=== PATIENT | male | born 1955 | race Caucasian/White ===

== ENCOUNTER 2021-11-11 07:01 | Emergency (ER) | payer MEDICARE ==
[~2021-11-11] VITALS: Ht 180.3 cm; Wt 74.5 kg
[2021-11-11] MEDS ORDERED: aspirin 81mg tab.chew PO ONE (07:30)
[2021-11-11 07:38] LABS: BASOPHILS % (AUTO) 0.5 % (0-1); EOSINOPHILS # (AUTO) 0.1 X10'3 (0-0.9); EOSINOPHILS % (AUTO) 1.8 % (0-6); HEMATOCRIT 46.4 % (42.0-52.0); HEMOGLOBIN 15.4 g/dl (14.0-17.9); LYMPHOCYTES # (AUTO) 1.8 X10'3 (1.1-4.8); LYMPHOCYTES % (AUTO) 34.6 % (21-51); MEAN CORPUSCULAR HEMOGLOBIN 30.8 PG (27.0-31.0); MEAN CORPUSCULAR HGB CONC 33.2 g/dL (33.0-36.5); MEAN CORPUSCULAR VOLUME 92.8 FL (78-98); MEAN PLATELET VOLUME 7.8 FL (7.4-10.4); MONOCYTES # (AUTO) 0.6 X10'3 (0-0.9); MONOCYTES % (AUTO) 12.3 % (2-12); NEUTROPHILS # (AUTO) 2.6 X10'3 (1.8-7.7); NEUTROPHILS % (AUTO) 50.8 % (42-75); PLATELET COUNT 275 X10'3 (140-440); RED CELL DISTRIBUTION WIDTH 13.4 % (11.5-14.5); WHITE BLOOD COUNT 5.2 X10'3 (4.5-11.0)
[2021-11-11 07:47] LABS: ALANINE AMINOTRANSFERASE 28 U/L (12-78); ALBUMIN 3.8 G/DL (3.4-5.0); ALBUMIN/GLOBULIN RATIO 1.1 (1.1-1.5); ALKALINE PHOSPHATASE 70 IU/L (46-116); ANION GAP 6 (8-16); ASPARTATE AMINO TRANSFERASE 22 U/L (10-37); BILIRUBIN,TOTAL 0.7 MG/DL (0.1-1.0); BLOOD UREA NITROGEN 14 MG/DL (7-18); BUN/CREATININE RATIO 13.3 (5.4-32.0); CALCIUM 8.8 MG/DL (8.5-10.1); CHLORIDE 104 MMOL/L (99-107); CREATININE 1.05 MG/DL (0.60-1.10); GLUCOSE 112 MG/DL (70-104); POTASSIUM 4.3 MMOL/L (3.5-5.1); SODIUM 138 MMOL/L (135-145); TOTAL CARBON DIOXIDE 27.8 MMOL/L (24-32); TOTAL PROTEIN 7.4 G/DL (6.4-8.2); eGFR 71 ML/MIN
[2021-11-11 08:30] VITALS: BP 148/82
[2021-11-19] MEDS ORDERED: ALFU10TA10 PO (10:44)
[2021-11-19] MEDS ORDERED: LOSA100T57 PO (10:44)
[2021-11-19] MEDS ORDERED: DIAZ5TAB4 PO (10:44)
[2021-11-20] MEDS ORDERED: METO-395 PO (08:50)
[2021-11-20] MEDS ORDERED: TICA90TA PO (08:50)
[2021-11-20] MEDS ORDERED: ASPI-1071 PO (08:50)
[2021-11-20] MEDS ORDERED: ATOR20TA66 PO (08:50)
[2021-11-20] MEDS ORDERED: NITR0.4T51 SL (08:50)
[2021-11-20] MEDS ORDERED: LOSA50TA3 PO (10:28)
== END 2021-11-11 09:56 | disposition home or self-care (01) ==
LOC: ER 07:02
DX: R07.89 Other chest pain (principal); R42 Dizziness and giddiness; Z98.890 Other specified postprocedural states
CPT/HCPCS: 36415; 71045; 80053; 83880; 84484; 85025; 93005; 99285

== ENCOUNTER 2022-06-04 06:53 | Day surgery (SDC) | payer MEDICARE ==
[2022-06-03 09:49] LABS: BASOPHILS % (AUTO) 0.6 % (0-1); EOSINOPHILS # (AUTO) 0.1 X10'3 (0-0.9); EOSINOPHILS % (AUTO) 1.9 % (0-6); HEMOGLOBIN 15.1 g/dl (14.0-17.9); LYMPHOCYTES # (AUTO) 1.5 X10'3 (1.1-4.8); LYMPHOCYTES % (AUTO) 31.9 % (21-51); MEAN CORPUSCULAR HEMOGLOBIN 31.7 PG (27.0-31.0); MEAN CORPUSCULAR HGB CONC 32.9 g/dL (33.0-36.5); MEAN CORPUSCULAR VOLUME 96.5 FL (78-98); MEAN PLATELET VOLUME 8.5 FL (7.4-10.4); MONOCYTES # (AUTO) 0.4 X10'3 (0-0.9); MONOCYTES % (AUTO) 9.1 % (2-12); NEUTROPHILS # (AUTO) 2.6 X10'3 (1.8-7.7); NEUTROPHILS % (AUTO) 56.5 % (42-75); PLATELET COUNT 242 X10'3 (140-440); RED BLOOD COUNT 4.77 X10'6 (4.70-6.10); RED CELL DISTRIBUTION WIDTH 13.5 % (11.5-14.5); WHITE BLOOD COUNT 4.6 X10'3 (4.5-11.0)
[2022-06-03 09:59] LABS: APTT 26 SECONDS (22-32)
[2022-06-03 10:07] LABS: ALBUMIN 3.7 G/DL (3.4-5.0); ANION GAP 5 (8-16); BLOOD UREA NITROGEN 17 MG/DL (7-18); BUN/CREATININE RATIO 13.7 (5.4-32.0); CALCIUM 9.1 MG/DL (8.5-10.1); CHLORIDE 105 MMOL/L (99-107); CREATININE 1.24 MG/DL (0.60-1.10); GLUCOSE 105 MG/DL (70-104); POTASSIUM 4.6 MMOL/L (3.5-5.1); SODIUM 140 MMOL/L (135-145); TOTAL CARBON DIOXIDE 30.4 MMOL/L (24-32); eGFR 58 ML/MIN
[2022-06-04] VITALS (11 sets, daily range): BP systolic 100–148; BP diastolic 42–83
[~2022-06-04] VITALS: Ht 180.3 cm; Wt 76.2 kg
[~2022-06-04 06:53] MED LIST: ALFU10TA10 PO; ASPI-1071 PO; ATOR20TA66 PO; DIAZ5TAB4 PO; METO-395 PO; NITR0.4T51 SL; TICA90TA PO
[2022-06-04] MEDS ORDERED: LORazepam 0.5 MG tablet PO PRN (07:10)
[2022-06-04] MEDS ORDERED: normal saline 1,000 ML IV SCH (07:10)
[2022-06-04] MEDS ORDERED: ROSU20TA31 PO (07:20)
[2022-06-04] MEDS ORDERED: ASPI-1475 PO (07:20)
[2022-06-04] MEDS ORDERED: LOSA50TA64 PO (07:20)
[2022-06-04] MEDS ORDERED: CLOP75TA34 PO (07:20)
[2022-06-04] MEDS ORDERED: NITR0.4T48 SL (07:20)
[2022-06-04] MEDS ORDERED: ASCO-157 PO (07:23)
[2022-06-04] MEDS ORDERED: MAGN250C PEG (07:23)
[2022-06-04] MEDS ORDERED: POTA99CA PO (07:23)
[2022-06-04] MEDS ORDERED: METO-539 PO (07:23)
[2022-06-04] MEDS ORDERED: LIDOcaine/PRILOcaine 5gm cream TP ONE (07:35)
[2022-06-04] MEDS ORDERED: normal saline 1,000 ML IV ONE (07:55)
[2022-06-04] MEDS ORDERED: sod bicarbonate 150mEq in D5W 1,150 ML IV ONE (08:00)
[2022-06-04] MEDS ORDERED: diphenhydrAMINE 25mg capsule PO ONE (08:05)
[2022-06-04] MEDS ORDERED: acetylcysteine 200 MG/ml 4ml vial PO SCH (08:05)
[2022-06-04] MEDS ORDERED: LIDOcaine 1% (10mg/ml) 2ml vial ONE (10:34)
[2022-06-04] MEDS ORDERED: nitroGLYCERIN-Tridil 50MG/D5W 250 ML IV ONE (10:34)
[2022-06-04] MEDS ORDERED: heparin 1,000unit/ml 10ml vial 10 ML ONE (10:34)
[2022-06-04] MEDS ORDERED: midazolam 1 mg/ML 2ml injection ONE (10:34)
[2022-06-04] MEDS ORDERED: verapamil 2.5 mg/ml inj IV ONE (10:34)
[2022-06-04] MEDS ORDERED: iohexol 350MG/ML 100ml bottle IV ONE ×2 (10:34→11:34)
[2022-06-04] MEDS ORDERED: FENTANYL CITRATE/PF 50 MCG/1 ML VIAL ONE (10:35)
[2022-06-04] MEDS ORDERED: heparin 25,000 UNIT/250ml bag 250 ML IV ONE (11:34)
[2022-06-04] MEDS ORDERED: clopidogrel 300mg tablet ONE (11:57)
[2022-06-04] MEDS ORDERED: sodium bicarbonate (8.4%) inj. 150 ML in dextrose 5%-water 850 ML IV ONE (12:45)
== END 2022-06-04 17:40 | disposition home or self-care (01) ==
LOC: SSTAY O 06:53
PROVIDERS: ATTEND Internal Medicine Cardiovascular Disease
DX: I25.10 Atherosclerotic heart disease of native coronary artery without angina pectoris (principal); I10 Essential (primary) hypertension; E78.5 Hyperlipidemia, unspecified; I25.2 Old myocardial infarction; Z95.5 Presence of coronary angioplasty implant and graft; Z98.890 Other specified postprocedural states; Z79.899 Other long term (current) drug therapy
CPT/HCPCS: 36415; 76937; 80048; 85025; 85347; 85610; 85730; 93005; 93458; 99152; 99153; C1725; C1751; C1769; C1874; C1894; C9600; J1644; J2250; J3010; J3490; J7030; Q0163; Q9967; A6258; A6449

== ENCOUNTER 2023-09-10 08:54 | Inpatient (IN) | payer MEDICARE ==
[2023-09-09 10:30] LABS: BASOPHILS % (AUTO) 0.7 % (0-1); EOSINOPHILS # (AUTO) 0.1 X10'3 (0-0.9); HEMATOCRIT 47.8 % (42.0-52.0); HEMOGLOBIN 15.8 g/dl (14.0-17.9); LYMPHOCYTES # (AUTO) 1.8 X10'3 (1.1-4.8); LYMPHOCYTES % (AUTO) 35.1 % (21-51); MEAN CORPUSCULAR HEMOGLOBIN 31.9 PG (27.0-31.0); MEAN CORPUSCULAR HGB CONC 33.1 g/dL (33.0-36.5); MEAN CORPUSCULAR VOLUME 96.5 FL (78-98); MEAN PLATELET VOLUME 8.2 FL (7.4-10.4); MONOCYTES # (AUTO) 0.7 X10'3 (0-0.9); MONOCYTES % (AUTO) 12.7 % (2-12); NEUTROPHILS # (AUTO) 2.6 X10'3 (1.8-7.7); NEUTROPHILS % (AUTO) 49.5 % (42-75); PLATELET COUNT 218 X10'3 (140-440); RED BLOOD COUNT 4.96 X10'6 (4.70-6.10); RED CELL DISTRIBUTION WIDTH 13.6 % (11.5-14.5); WHITE BLOOD COUNT 5.2 X10'3 (4.5-11.0)
[2023-09-09 10:42] LABS: ALBUMIN 3.7 G/DL (3.4-5.0); ANION GAP 2 (8-16); BLOOD UREA NITROGEN 14 MG/DL (7-18); BUN/CREATININE RATIO 10.9 (10.0-20.0); CALCIUM 8.6 MG/DL (8.5-10.1); CHLORIDE 106 MMOL/L (99-107); CREATININE 1.29 MG/DL (0.60-1.10); GLUCOSE 92 MG/DL (70-104); POTASSIUM 4.8 MMOL/L (3.5-5.1); SODIUM 140 MMOL/L (135-145); TOTAL CARBON DIOXIDE 31.6 MMOL/L (24-32); eGFR 55 ML/MIN
[2023-09-09 10:47] LABS: APTT 28 SECONDS (22-32); PROTHROMBIN TIME 10.3 SECONDS (9.0-12.0)
[~2023-09-10] VITALS: Ht 180.3 cm; Wt 77.6 kg
[2023-09-10] VITALS (17 sets, daily range): BP systolic 119–200; BP diastolic 47–91; PULSE 46–66; RESP 9–17; TEMP 98; O2SAT 93–98
[~2023-09-10 08:54] MED LIST changes: +ASCO-157 PO; -ASPI-1071 PO; +ASPI-1475 PO; -ATOR20TA66 PO; +CLOP75TA34 PO; -DIAZ5TAB4 PO; +LOSA50TA64 PO; +MAGN250C PEG; -METO-395 PO; +METO-539 PO; +NITR0.4T48 SL; -NITR0.4T51 SL; +POTA99CA PO; +ROSU20TA73 PO; -TICA90TA PO
[2023-09-10] MEDS ORDERED: DIAZ5TAB4 PO (09:14)
[2023-09-10] MEDS ORDERED: METO-395 PO (09:16)
[2023-09-10] MEDS ORDERED: ROSU40TA22 PO (09:16)
[2023-09-10] MEDS ORDERED: ISOS30TA84 PO (09:16)
[2023-09-10] MEDS ORDERED: TRAM50TA2 PO (09:17)
[2023-09-10] MEDS: diphenhydrAMINE 25mg capsule PO PRN (09:39)
[2023-09-10] MEDS: acetylcysteine 200 MG/ml 4ml vial PO PRN (09:39)
[2023-09-10] MEDS: LORazepam 0.5 MG tablet PO PRN (09:42)
[2023-09-10] MEDS: normal saline 1,000 ML IV SCH (09:42)
[2023-09-10] MEDS: sodium bicarbonate 1meq/ml syr 150 ML in dextrose 5%-water 1,000 ML IV SCH (09:56)
[2023-09-10] MEDS ORDERED: midazolam 1 mg/ML 2ml injection ONE (10:33)
[2023-09-10] MEDS ORDERED: fentaNYL/PF 50MCG/1 ML 2ML syringe ONE (10:33)
[2023-09-10] MEDS ORDERED: LIDOcaine 1% (10mg/ml) 2ml vial ONE (10:33)
[2023-09-10] MEDS ORDERED: iohexol 350 MG/ML 50ML vial IV ONE ×2 (10:33→12:11)
[2023-09-10] MEDS ORDERED: heparin 1,000unit/ml 10ml vial 10 ML ONE (10:33)
[2023-09-10] MEDS ORDERED: verapamil 2.5 mg/ml inj IV ONE (10:33)
[2023-09-10] MEDS ORDERED: iohexol 350MG/ML 100ml bottle IV ONE (10:34)
[2023-09-10] MEDS ORDERED: nitroGLYCERIN 500mcg/5mL D5W 5 ML IV ONE (10:35)
[2023-09-10] MEDS ORDERED: heparin 25,000 UNIT/250ml bag 250 ML IV ONE (12:30)
[2023-09-10] MEDS ORDERED: nitroGLYCERIN-Tridil 50MG/D5W 250 ML IV ONE (12:31)
[2023-09-10] MEDS ORDERED: NITR0.4T51 SL (13:17)
[2023-09-10] MEDS ORDERED: acetaminophen 325mg tablet PO PRN (13:20)
[2023-09-10] MEDS ORDERED: cyclobenzaprine 10mg tablet PO PRN (13:20)
[2023-09-10] MEDS: aspirin 81mg tab.chew PO ONE (13:20)
[2023-09-10] MEDS ORDERED: magnesium hydroxide 30ml (MOM) UD suspension PO PRN ×2 (13:20→17:45)
[2023-09-10] MEDS ORDERED: nitroGLYCERIN 0.4mg SUBLingual tab SL PRN (13:20)
[2023-09-10] MEDS ORDERED: aminocaproic acid 250 MG/1 ML inj. ONE (17:00)
[2023-09-10] MEDS: nitroGLYCERIN-Tridil 50MG/D5W 250 ML IV SCH ×2 (17:20→18:15)
[2023-09-10] MEDS ORDERED: magnesium 2GM in 50ml NS 50 ML IV PRN (17:45)
[2023-09-10] MEDS ORDERED: magnesium 4gm in 100ml NS 100 ML IV PRN (17:45)
[2023-09-10] MEDS ORDERED: potassium Cl 40MEQ/1/2NS 520ml 520 ML IV PRN (17:45)
[2023-09-10] MEDS ORDERED: mag hydrox/Alum hydrox/simeth 30ml oral suspension PO PRN (17:45)
[2023-09-10] MEDS ORDERED: potassium Cl 20 mEq SR tablet PO PRN ×2 (17:45)
[2023-09-10] MEDS ORDERED: ondansetron/PF 4mg/2ml inj IV PRN (17:45)
[2023-09-10] MEDS ORDERED: magnesium Cl slow-release 64mg tablet PO PRN (17:45)
[2023-09-10] MEDS: hydrALAZINE 20mg/ml inj. IV PRN (19:02)
[2023-09-10] MEDS ORDERED: docusate sod 100mg capsule PO SCH (20:00)
[2023-09-10] MEDS: MESSAGE TO NURSING IV ONE (20:00)
[2023-09-10] MEDS: folic acid 1mg/0.2ml inj IV ONE (20:03)
[2023-09-10] MEDS: metoprolol succinate 25mg (24-HOUR) SR. Tablet PO SCH (22:09)
[2023-09-10] MEDS: thiamine 100mg/ml 2ml inj. IV SCH (22:09)
[2023-09-10] MEDS: docusate sod 100mg capsule PO SCH (22:10)
[2023-09-10] MEDS: OXAZEpam 15mg capsule PO PRN (23:00)
[2023-09-11] VITALS (24 sets, daily range): BP systolic 111–172; BP diastolic 48–86; PULSE 50–65; RESP 9–23; O2SAT 92–98
[2023-09-11] MEDS: HYDROcodone/acetaminophen 10/325mg tab PO PRN ×2 (00:16→12:07)
[2023-09-11 02:21] LABS: BASOPHILS % (AUTO) 0.6 % (0-1); EOSINOPHILS # (AUTO) 0.1 X10'3 (0-0.9); EOSINOPHILS % (AUTO) 1.3 % (0-6); HEMATOCRIT 40.3 % (42.0-52.0); HEMOGLOBIN 13.7 g/dl (14.0-17.9); LYMPHOCYTES # (AUTO) 1.8 X10'3 (1.1-4.8); LYMPHOCYTES % (AUTO) 29.9 % (21-51); MEAN CORPUSCULAR HEMOGLOBIN 32.3 PG (27.0-31.0); MEAN PLATELET VOLUME 8.9 FL (7.4-10.4); MONOCYTES # (AUTO) 0.5 X10'3 (0-0.9); MONOCYTES % (AUTO) 8.9 % (2-12); NEUTROPHILS # (AUTO) 3.7 X10'3 (1.8-7.7); NEUTROPHILS % (AUTO) 59.3 % (42-75); PLATELET COUNT 173 X10'3 (140-440); RED BLOOD COUNT 4.24 X10'6 (4.70-6.10); RED CELL DISTRIBUTION WIDTH 13.6 % (11.5-14.5); WHITE BLOOD COUNT 6.2 X10'3 (4.5-11.0)
[2023-09-11 02:30] LABS: APTT 44 SECONDS (22-32)
[2023-09-11 02:33] LABS: ALBUMIN 2.8 G/DL (3.4-5.0); ANION GAP 7 (8-16); BLOOD UREA NITROGEN 15 MG/DL (7-18); BUN/CREATININE RATIO 14.3 (10.0-20.0); CALCIUM 7.7 MG/DL (8.5-10.1); CHLORIDE 105 MMOL/L (99-107); CHOL/HDL RATIO 2.1 (0.00-4.99); CHOLESTEROL 121 MG/DL (0-200); CREATININE 1.05 MG/DL (0.60-1.10); GLUCOSE 85 MG/DL (70-104); HDL CHOLESTEROL 57 MG/DL (35-60); LDL CHOLESTEROL 49 MG/DL (50-100); MAGNESIUM 1.9 MG/DL (1.5-2.4); POTASSIUM 3.7 MMOL/L (3.5-5.1); SODIUM 138 MMOL/L (135-145); TRIGLYCERIDES 89 MG/DL (20-135); eCRCL 71 ML/MIN; eGFR 70 ML/MIN
[2023-09-11] MEDS: heparin 10,000 units/1 ML INJ IV PRN (02:45)
[2023-09-11] MEDS: MESSAGE TO NURSING IV ONE ×4 (03:01→20:40)
[2023-09-11] MEDS: ringers solution, lacted 1,000 ML IV SCH (04:00)
[2023-09-11] MEDS ORDERED: aspirin 81mg tab.chew PO SCH (08:00)
[2023-09-11] MEDS: isosorbide mononitrate 30mg tab.SR.24H PO SCH (08:00)
[2023-09-11] MEDS: aspirin 81mg, enteric-coated 1 TAB TABLET.DR PO SCH (08:01)
[2023-09-11] MEDS: multivitamins, therapeutics tablet PO SCH (08:01)
[2023-09-11] MEDS: tamsulosin 0.4mg capsule PO SCH (08:01)
[2023-09-11] MEDS: atorvastatin 20mg tablet PO SCH (08:01)
[2023-09-11] MEDS: lisinopril 10 MG tablet PO SCH (08:04)
[2023-09-11 08:35] LABS: APTT > 139 SECONDS (22-32)
[2023-09-11] MEDS ORDERED: ASPI-611 PO (10:46)
[2023-09-11] MEDS: folic acid 1mg/0.2ml inj IV SCH (11:50)
[2023-09-11] MEDS: heparin 25,000 UNIT/250ml bag 250 ML IV PRN (12:02)
[2023-09-11] MEDS: diazepam 5mg tablet PO PRN (21:00)
[2023-09-11] MEDS ORDERED: insulin glargine (Lantus) pen - multi-dose SQ PRN (22:05)
[2023-09-11] MEDS: MESSAGE TO NURSING PO ONE ×3 (22:05)
[2023-09-11] MEDS ORDERED: dextrose 50%-water 50ml dispensing syringe IV PRN (22:05)
[2023-09-11 23:49] LABS: BILIRUBIN,URINE NEGATIVE (Neg); CLARITY,URINE CLEAR (Clear); COLOR,URINE YELLOW (Yellow); GLUCOSE, URINE NEGATIVE (Neg); KETONES,URINE NEGATIVE (Neg); LEUKOCYTE ESTERASE ,URINE NEGATIVE (Neg); NITRITES, URINE NEGATIVE (Neg); OCCULT BLOOD,URINE NEGATIVE (Neg); PH,URINE 7.5 (4.8-8.0); PROTEIN,URINE NEGATIVE (Neg); UROBILINOGEN,URINE 0.2 E.U/dL (0.2-1.0)
[2023-09-11 23:50] LABS: UA COLLECTION TYPE VOIDED
[2023-09-12] VITALS (28 sets, daily range): BP systolic 95–178; BP diastolic 41–83; PULSE 46–70; RESP 10–26; TEMP 97.7; O2SAT 59–100
[2023-09-12 02:10] LABS: ABG BASE EXCESS -2.1 mmol/L (-2.0-2.0); ABG HCO3 22.6 mmol/L (22.0-26.0); ABG OXYGEN SATURATION 93.6 % (94-97); ABG PCO2 (T) 37.4 mmHg (35.0-48.0); ABG PH (T) 7.396 (7.340-7.440); ABG PO2 (T) 62.8 mmHg (75.0-100.0); FCOHb 0.6 % (0.0-3.9); FHHb 6.3 % (0.0-5.0); FMetHb 0.3 % (0.0-1.5); FO2Hb 92.8 % (94-97); MODE ROOM AIR; PATIENT TEMPERATURE 36.5; TOTAL HEMOGLOBIN 13.6 G/dl (14.0-17.9)
[2023-09-12 02:15] LABS: APTT 55 SECONDS (22-32); PROTHROMBIN TIME 10.6 SECONDS (9.0-12.0)
[2023-09-12 02:26] LABS: ALANINE AMINOTRANSFERASE 31 U/L (12-78); ALBUMIN 2.8 G/DL (3.4-5.0); ALBUMIN/GLOBULIN RATIO 0.9 (1.1-1.5); ALKALINE PHOSPHATASE 52 IU/L (46-116); ANION GAP 8 (8-16); ASPARTATE AMINO TRANSFERASE 20 U/L (10-37); BILIRUBIN,TOTAL 0.3 MG/DL (0.1-1.0); BLOOD UREA NITROGEN 19 MG/DL (7-18); BUN/CREATININE RATIO 17.8 (10.0-20.0); CALCIUM 8.2 MG/DL (8.5-10.1); CHLORIDE 109 MMOL/L (99-107); CREATININE 1.07 MG/DL (0.60-1.10); GLUCOSE 89 MG/DL (70-104); POTASSIUM 3.9 MMOL/L (3.5-5.1); SODIUM 141 MMOL/L (135-145); TOTAL CARBON DIOXIDE 24.3 MMOL/L (24-32); TOTAL PROTEIN 5.8 G/DL (6.4-8.2); eCRCL 69 ML/MIN; eGFR 69 ML/MIN
[2023-09-12 02:32] LABS: HEMOGLOBIN A1C 5.1 % (4.5-6.2)
[2023-09-12] MEDS: MESSAGE TO NURSING IV ONE (03:20)
[2023-09-12 05:24] LABS: BASOPHILS # (AUTO) 0.1 X10'3 (0-0.2); BASOPHILS % (AUTO) 0.9 % (0-1); EOSINOPHILS # (AUTO) 0.1 X10'3 (0-0.9); EOSINOPHILS % (AUTO) 2.4 % (0-6); LYMPHOCYTES # (AUTO) 2.4 X10'3 (1.1-4.8); LYMPHOCYTES % (AUTO) 41.2 % (21-51); MEAN CORPUSCULAR HEMOGLOBIN 32.2 PG (27.0-31.0); MEAN CORPUSCULAR HGB CONC 33.5 g/dL (33.0-36.5); MEAN CORPUSCULAR VOLUME 96.1 FL (78-98); MEAN PLATELET VOLUME 9.2 FL (7.4-10.4); MONOCYTES # (AUTO) 0.6 X10'3 (0-0.9); MONOCYTES % (AUTO) 10.5 % (2-12); NEUTROPHILS # (AUTO) 2.6 X10'3 (1.8-7.7); PRE OP HEMOGLOBIN 13.1 g/dL (14.0-17.9); PRE OP PLATELET COUNT 247 X10'3 (140-440); PRE OP WHITE BLOOD COUNT 5.7 10'3 (4.8-10.8); RED BLOOD COUNT 4.06 X10'6 (4.70-6.10); RED CELL DISTRIBUTION WIDTH 13.2 % (11.5-14.5)
[2023-09-12] MEDS ORDERED: LORazepam 2 mg/ml vial IV ONE (06:30)
[2023-09-12] MEDS ORDERED: sevoflurane 250ml liquid IH ONE (07:34)
[2023-09-12] MEDS ORDERED: SUfentanil 50mcg/ml 1ml amp IV ONE (07:37)
[2023-09-12] MEDS ORDERED: MIDAZolam 1mg/ml 10ml vial ONE (07:37)
[2023-09-12] MEDS ORDERED: propofol inj 20 ML IV ONE (07:43)
[2023-09-12] MEDS: mupirocin 2% ointment 22GM NS SCH (08:00)
[2023-09-12 08:21] LABS: ABG BASE EXCESS -1.4 mmol/L (-2.0-2.0); ABG HCO3 22.3 mmol/L (22.0-26.0); ABG OXYGEN SATURATION 99.3 % (94-97); ABG PCO2 34.1 mmHg (35.0-48.0); ABG PH 7.433 (7.340-7.440); ABG PO2 240.2 mmHg (75.0-100.0); CL (ABG) 107 mmol/L (99-107); FCOHb 0.3 % (0.0-3.9); FHHb 0.7 % (0.0-5.0); FMetHb 0.3 % (0.0-1.5); FO2Hb 98.7 % (94-97); GLUCOSE (ABG) 121 mg/dl (70-104); IONIZED CA (ABG) 1.17 mmol/L (1.10-1.30); K (ABG) 3.9 mmol/L (3.5-5.1)
[2023-09-12] MEDS: BUPIVAcaine/PF 2.5mg/ml (0.25%) 10ml vial ONE (09:12)
[2023-09-12] MEDS: BUPIVACAINE liposomal/PF 13.3 MG/ML vial IM ONE (09:12)
[2023-09-12] MEDS: ceFAZolin 1000mg inj ONE (09:12)
[2023-09-12] MEDS: epiNEPHrine 1 mg/ml inj ONE (09:13)
[2023-09-12 10:27] LABS: ABG BASE EXCESS VENOUS -0.8 mmol/L (-2.0 - 2.0); ABG HCO3 VENOUS 24.5 mmol/L (21.0-28.0); ABG OXYGEN SATURATION VENOUS 67.6 % (75 - 99 %); ABG PCO2 VENOUS 42.9 mmHg (41.0-54.0); ABG PH (VENOUS) 7.374 (7.310-7.450); ABG PO2 VENOUS 33.2 mmHg (25.0-35.0); CL (ABG) 106 mmol/L (99-107); FCOHb VENOUS 0.2 %; FHHb VENOUS 32.2 %; FMetHb VENOUS 0.3 % (0.0 - 0.5); FO2Hb VENOUS 67.3 %; GLUCOSE (ABG) 89 mg/dl (70-104); IONIZED CA (ABG) 1.17 mmol/L (1.10-1.30); TOTAL HEMOGLOBIN 13.2 G/dl (14.0-17.9)
[2023-09-12 11:06] LABS: ABG BASE EXCESS VENOUS -3.9 mmol/L (-2.0 - 2.0); ABG HCO3 VENOUS 21.7 mmol/L (21.0-28.0); ABG OXYGEN SATURATION VENOUS 72.4 % (75 - 99 %); ABG PCO2 VENOUS 41.5 mmHg (41.0-54.0); ABG PH (VENOUS) 7.336 (7.310-7.450); ABG PO2 VENOUS 37.2 mmHg (25.0-35.0); CL (ABG) 106 mmol/L (99-107); FHHb VENOUS 27.5 %; FMetHb VENOUS 0.3 % (0.0 - 0.5); FO2Hb VENOUS 72.2 %; GLUCOSE (ABG) 104 mg/dl (70-104); IONIZED CA (ABG) 1.15 mmol/L (1.10-1.30); K (ABG) 3.9 mmol/L (3.5-5.1)
[2023-09-12] MEDS ORDERED: rocuronium 10mg/ml inj IV ONE ×4 (11:25→14:15)
[2023-09-12 11:47] LABS: ABG BASE EXCESS VENOUS -3.4 mmol/L (-2.0 - 2.0); ABG HCO3 VENOUS 22.5 mmol/L (21.0-28.0); ABG OXYGEN SATURATION VENOUS 77.9 % (75 - 99 %); ABG PCO2 VENOUS 43.6 mmHg (41.0-54.0); ABG PO2 VENOUS 42.1 mmHg (25.0-35.0); CL (ABG) 106 mmol/L (99-107); FCOHb VENOUS 0.2 %; FMetHb VENOUS 0.3 % (0.0 - 0.5); FO2Hb VENOUS 77.5 %; GLUCOSE (ABG) 122 mg/dl (70-104); IONIZED CA (ABG) 1.14 mmol/L (1.10-1.30); K (ABG) 3.8 mmol/L (3.5-5.1); TOTAL HEMOGLOBIN 13.3 G/dl (14.0-17.9)
[2023-09-12] MEDS ORDERED: albumin (Human) 5% 250ml 250 ML IV ONE ×2 (11:49→14:15)
[2023-09-12] MEDS: cefazolin 2gm/D5W 100mL 100 ML IV ONE (12:05)
[2023-09-12] MEDS: Insulin Reg/NS 100units/100mL 100 ML IV SCH ×2 (12:05→15:31)
[2023-09-12] MEDS: famotidine 20mg tablet PO ONE (12:05)
[2023-09-12] MEDS: MESSAGE TO NURSING PO ONE (12:07)
[2023-09-12 12:36] LABS: ABG HCO3 21.9 mmol/L (22.0-26.0); ABG OXYGEN SATURATION 71.9 % (94-97); ABG PCO2 42.6 mmHg (35.0-48.0); ABG PH 7.328 (7.340-7.440); CL (ABG) 107 mmol/L (99-107); FCOHb 0.1 % (0.0-3.9); FMetHb 0.3 % (0.0-1.5); FO2Hb 71.6 % (94-97); GLUCOSE (ABG) 130 mg/dl (70-104); IONIZED CA (ABG) 1.14 mmol/L (1.10-1.30); K (ABG) 3.7 mmol/L (3.5-5.1); TOTAL HEMOGLOBIN 13.1 G/dl (14.0-17.9)
[2023-09-12 13:02] LABS: ABG BASE EXCESS VENOUS -4.8 mmol/L (-2.0 - 2.0); ABG OXYGEN SATURATION VENOUS 73.2 % (75 - 99 %); ABG PCO2 VENOUS 41.5 mmHg (41.0-54.0); ABG PH (VENOUS) 7.321 (7.310-7.450); ABG PO2 VENOUS 38.3 mmHg (25.0-35.0); CL (ABG) 107 mmol/L (99-107); FCOHb VENOUS 0.2 %; FHHb VENOUS 26.7 %; FMetHb VENOUS 0.3 % (0.0 - 0.5); FO2Hb VENOUS 72.8 %; GLUCOSE (ABG) 138 mg/dl (70-104); IONIZED CA (ABG) 1.12 mmol/L (1.10-1.30); K (ABG) 3.6 mmol/L (3.5-5.1); TOTAL HEMOGLOBIN 12.9 G/dl (14.0-17.9)
[2023-09-12 13:45] LABS: ABG BASE EXCESS -6.2 mmol/L (-2.0-2.0); ABG HCO3 19.3 mmol/L (22.0-26.0); ABG OXYGEN SATURATION 96.3 % (94-97); ABG PH 7.323 (7.340-7.440); ABG PO2 90.6 mmHg (75.0-100.0); CL (ABG) 111 mmol/L (99-107); FCOHb 0.3 % (0.0-3.9); FHHb 3.7 % (0.0-5.0); FMetHb 0.3 % (0.0-1.5); FO2Hb 95.7 % (94-97); GLUCOSE (ABG) 123 mg/dl (70-104); IONIZED CA (ABG) 1.23 mmol/L (1.10-1.30); TOTAL HEMOGLOBIN 12.4 G/dl (14.0-17.9)
[2023-09-12 13:49] LABS: ACTIVATED CLOTTING TIME 109 SEC (101-148)
[2023-09-12 13:58] LABS: ABG BASE EXCESS -3.5 mmol/L (-2.0-2.0); ABG OXYGEN SATURATION 98.9 % (94-97); ABG PCO2 36.1 mmHg (35.0-48.0); ABG PH 7.383 (7.340-7.440); ABG PO2 202.3 mmHg (75.0-100.0); CL (ABG) 109 mmol/L (99-107); FCOHb 0.3 % (0.0-3.9); FHHb 1.1 % (0.0-5.0); FMetHb 0.3 % (0.0-1.5); FO2Hb 98.3 % (94-97); GLUCOSE (ABG) 112 mg/dl (70-104); IONIZED CA (ABG) 1.21 mmol/L (1.10-1.30); K (ABG) 4.2 mmol/L (3.5-5.1); TOTAL HEMOGLOBIN 11.8 G/dl (14.0-17.9)
[2023-09-12] MEDS ORDERED: ceFAZolin 1000mg inj ONE (14:16)
[2023-09-12 15:02] LABS: ABG HCO3 18.1 mmol/L (22.0-26.0); ABG OXYGEN SATURATION 98.8 % (94-97); ABG PCO2 (T) 31.5 mmHg (35.0-48.0); ABG PH (T) 7.366 (7.340-7.440); ABG PO2 (T) 132.5 mmHg (75.0-100.0); FCOHb 0.3 % (0.0-3.9); FHHb 1.2 % (0.0-5.0); FMetHb 0.3 % (0.0-1.5); FO2Hb 98.2 % (94-97); MODE VENT SIMV; PATIENT TEMPERATURE 34.7; PEEP 5 cm H2O; RESPIRATORY RATE 12 b/min; TIDAL VOLUME 500 mL; TOTAL HEMOGLOBIN 12.1 G/dl (14.0-17.9)
[2023-09-12] MEDS ORDERED: potassium Cl 20mEq/100mL bag 100 ML IV PRN (15:05)
[2023-09-12] MEDS ORDERED: DOPamine 400mg/D5W 250ml 250 ML IV PRN (15:05)
[2023-09-12] MEDS ORDERED: Insulin Reg/NS 100units/100mL 100 ML IV SCH (15:05)
[2023-09-12] MEDS ORDERED: niCARDipine-NS 40mg/200ml IVPB 200 ML IV PRN (15:05)
[2023-09-12] MEDS ORDERED: sodium phosphate inj. 30 MMOL in dextrose 5%-water 250 ML IV PRN (15:05)
[2023-09-12] MEDS ORDERED: nitroGLYCERIN-Tridil 50MG/D5W 250 ML IV PRN (15:05)
[2023-09-12] MEDS ORDERED: potassium CL 10mEq/100ml bag 100 ML IV PRN (15:05)
[2023-09-12] MEDS ORDERED: sodium phosphate inj. 15 MMOL in dextrose 5%-water 250 ML IV PRN (15:05)
[2023-09-12] MEDS ORDERED: insulin glargine (Lantus) pen - multi-dose SQ PRN (15:05)
[2023-09-12] MEDS ORDERED: metoclopramide 5 mg/ml inj IV PRN (15:05)
[2023-09-12] MEDS ORDERED: normal saline 250ml IV soln 250 ML IV PRN (15:05)
[2023-09-12] MEDS ORDERED: Neutra Phos packet PO PRN (15:05)
[2023-09-12] MEDS ORDERED: mineral oil 133ml enema RC PRN (15:05)
[2023-09-12] MEDS ORDERED: dextrose 50%-water 50ml dispensing syringe IV PRN (15:05)
[2023-09-12] MEDS ORDERED: potassium Cl 40MEQ/1/2NS 520ml 520 ML IV PRN (15:05)
[2023-09-12] MEDS: sodium chloride 0.45% 1,000 ML IV SCH (15:35)
[2023-09-12] MEDS: ondansetron/PF 4mg/2ml inj IV PRN (15:36)
[2023-09-12] MEDS: albumin (Human) 5% 250ml 250 ML IV PRN (15:37)
[2023-09-12 15:52] LABS: BASOPHILS % (AUTO) 0.1 % (0-1); EOSINOPHILS % (AUTO) 0.1 % (0-6); HEMATOCRIT 33.3 % (42.0-52.0); HEMOGLOBIN 10.9 g/dl (14.0-17.9); LYMPHOCYTES % (AUTO) 9.2 % (21-51); MEAN CORPUSCULAR HEMOGLOBIN 31.5 PG (27.0-31.0); MEAN CORPUSCULAR HGB CONC 32.7 g/dL (33.0-36.5); MEAN CORPUSCULAR VOLUME 96.3 FL (78-98); MEAN PLATELET VOLUME 8.6 FL (7.4-10.4); MONOCYTES # (AUTO) 0.9 X10'3 (0-0.9); MONOCYTES % (AUTO) 8.3 % (2-12); NEUTROPHILS # (AUTO) 9.2 X10'3 (1.8-7.7); NEUTROPHILS % (AUTO) 82.3 % (42-75); PLATELET COUNT 131 X10'3 (140-440); RED BLOOD COUNT 3.46 X10'6 (4.70-6.10); WHITE BLOOD COUNT 11.1 X10'3 (4.5-11.0)
[2023-09-12 16:01] LABS: APTT 27 SECONDS (22-32); INR 1.1 INR; PROTHROMBIN TIME 12.2 SECONDS (9.0-12.0)
[2023-09-12 16:05] LABS: FIBRINOGEN 185 MG/DL (177-424)
[2023-09-12 16:08] LABS: ALANINE AMINOTRANSFERASE 23 U/L (12-78); ALBUMIN 2.3 G/DL (3.4-5.0); ALKALINE PHOSPHATASE 34 IU/L (46-116); ANION GAP 10 (8-16); ASPARTATE AMINO TRANSFERASE 21 U/L (10-37); BILIRUBIN,TOTAL 0.5 MG/DL (0.1-1.0); BLOOD UREA NITROGEN 10 MG/DL (7-18); BUN/CREATININE RATIO 11.4 (10.0-20.0); CALCIUM 7.6 MG/DL (8.5-10.1); CHLORIDE 112 MMOL/L (99-107); CREATININE 0.88 MG/DL (0.60-1.10); GLUCOSE 108 MG/DL (70-104); MAGNESIUM 1.5 MG/DL (1.5-2.4); POTASSIUM 3.8 MMOL/L (3.5-5.1); SODIUM 144 MMOL/L (135-145); TOTAL CARBON DIOXIDE 21.7 MMOL/L (24-32); TOTAL PROTEIN 4.6 G/DL (6.4-8.2); eCRCL 86 ML/MIN; eGFR 86 ML/MIN
[2023-09-12] MEDS: ceFAZolin/D5W- 1GM premix 50 ML IV SCH (16:16)
[2023-09-12] MEDS ORDERED: acetaminophen 1,000mg/100ml IV 100 ML IV PRN (16:25)
[2023-09-12] MEDS: HYDROmorphone inj. 0.5 MG/0.5 ML DISP.SYRIN IV PRN (16:30)
[2023-09-12] MEDS: acetaminophen 1,000mg/100ml IV 100 ML IV PRN (16:30)
[2023-09-12] MEDS: magnesium 2GM in 50ml NS 50 ML IV PRN (16:31)
[2023-09-12] MEDS: magnesium 4gm in 100ml NS 100 ML IV PRN (16:31)
[2023-09-12] MEDS: potassium Cl 40MEQ/270ML bag 250 ML IV PRN (16:50)
[2023-09-12] MEDS: dexmedetomidin/NS 400mcg/100ml 100 ML IV PRN (16:50)
[2023-09-12] MEDS: sodium bicarbonate (8.4%) 1 mEq/ml syringe IV ONE ×2 (17:48→19:27)
[2023-09-12 18:58] LABS: ABG BASE EXCESS -3.8 mmol/L (-2.0-2.0); ABG HCO3 20.9 mmol/L (22.0-26.0); ABG OXYGEN SATURATION 96.2 % (94-97); ABG PCO2 (T) 37.1 mmHg (35.0-48.0); ABG PH (T) 7.371 (7.340-7.440); ABG PO2 (T) 82.9 mmHg (75.0-100.0); FCOHb 0.4 % (0.0-3.9); FHHb 3.8 % (0.0-5.0); FLOW 2 L/min; FMetHb 0.3 % (0.0-1.5); FO2Hb 95.5 % (94-97); MODE NASAL CANNULA; PATIENT TEMPERATURE 37.1; TOTAL HEMOGLOBIN 11.4 G/dl (14.0-17.9)
[2023-09-12] MEDS: ipratropium/albuterol 3ml nebule NEB SCH (19:03)
[2023-09-12] MEDS: gabapentin 300mg capsule PO SCH (19:47)
[2023-09-12] MEDS: mupirocin 2% nasal ointment 1gm UD NS SCH (19:47)
[2023-09-12] MEDS: sennosides/docusate sodium tablet PO SCH (19:47)
[2023-09-12] MEDS: atorvastatin 10mg tablet PO SCH (19:47)
[2023-09-12 20:17] LABS: BASOPHILS % (AUTO) 0.1 % (0-1); EOSINOPHILS % (AUTO) 0 % (0-6); HEMATOCRIT 31.1 % (42.0-52.0); HEMOGLOBIN 10.6 g/dl (14.0-17.9); LYMPHOCYTES # (AUTO) 0.4 X10'3 (1.1-4.8); LYMPHOCYTES % (AUTO) 5.8 % (21-51); MEAN CORPUSCULAR HEMOGLOBIN 32.5 PG (27.0-31.0); MEAN CORPUSCULAR VOLUME 95.5 FL (78-98); MEAN PLATELET VOLUME 8.2 FL (7.4-10.4); MONOCYTES # (AUTO) 0.6 X10'3 (0-0.9); MONOCYTES % (AUTO) 8.6 % (2-12); NEUTROPHILS # (AUTO) 6.4 X10'3 (1.8-7.7); NEUTROPHILS % (AUTO) 85.5 % (42-75); PLATELET COUNT 124 X10'3 (140-440); RED BLOOD COUNT 3.26 X10'6 (4.70-6.10); RED CELL DISTRIBUTION WIDTH 13.2 % (11.5-14.5); WHITE BLOOD COUNT 7.5 X10'3 (4.5-11.0)
[2023-09-12 20:29] LABS: ALBUMIN 3.1 G/DL (3.4-5.0); ANION GAP 9 (8-16); BLOOD UREA NITROGEN 11 MG/DL (7-18); BUN/CREATININE RATIO 10.6 (10.0-20.0); CALCIUM 7.5 MG/DL (8.5-10.1); CHLORIDE 107 MMOL/L (99-107); CREATININE 1.04 MG/DL (0.60-1.10); GLUCOSE 118 MG/DL (70-104); MAGNESIUM 2.9 MG/DL (1.5-2.4); PHOSPHORUS 2.9 MG/DL (2.3-4.5); POTASSIUM 4.6 MMOL/L (3.5-5.1); SODIUM 141 MMOL/L (135-145); TOTAL CARBON DIOXIDE 24.9 MMOL/L (24-32); eCRCL 72 ML/MIN; eGFR 71 ML/MIN
[2023-09-13] VITALS (32 sets, daily range): BP systolic 67–128; BP diastolic 38–65; PULSE 16–86; RESP 12–24; O2SAT 88–99
[2023-09-13 01:42] LABS: BASOPHILS # (AUTO) 0.1 X10'3 (0-0.2); BASOPHILS % (AUTO) 1.5 % (0-1); EOSINOPHILS % (AUTO) 0.4 % (0-6); HEMOGLOBIN 10.1 g/dl (14.0-17.9); LYMPHOCYTES # (AUTO) 0.4 X10'3 (1.1-4.8); LYMPHOCYTES % (AUTO) 5.5 % (21-51); MEAN CORPUSCULAR HEMOGLOBIN 32.3 PG (27.0-31.0); MEAN CORPUSCULAR HGB CONC 33.6 g/dL (33.0-36.5); MEAN CORPUSCULAR VOLUME 96.1 FL (78-98); MEAN PLATELET VOLUME 8.6 FL (7.4-10.4); MONOCYTES # (AUTO) 0.4 X10'3 (0-0.9); MONOCYTES % (AUTO) 5.8 % (2-12); NEUTROPHILS % (AUTO) 86.8 % (42-75); PLATELET COUNT 122 X10'3 (140-440); RED BLOOD COUNT 3.12 X10'6 (4.70-6.10); RED CELL DISTRIBUTION WIDTH 13.4 % (11.5-14.5); WHITE BLOOD COUNT 6.9 X10'3 (4.5-11.0)
[2023-09-13 01:47] LABS: APTT 27 SECONDS (22-32); PROTHROMBIN TIME 10.9 SECONDS (9.0-12.0)
[2023-09-13 01:50] LABS: ALANINE AMINOTRANSFERASE 21 U/L (12-78); ALBUMIN 2.9 G/DL (3.4-5.0); ALBUMIN/GLOBULIN RATIO 1.2 (1.1-1.5); ALKALINE PHOSPHATASE 41 IU/L (46-116); ANION GAP 10 (8-16); ASPARTATE AMINO TRANSFERASE 34 U/L (10-37); BILIRUBIN,TOTAL 0.7 MG/DL (0.1-1.0); BLOOD UREA NITROGEN 12 MG/DL (7-18); BUN/CREATININE RATIO 11.1 (10.0-20.0); CALCIUM 7.4 MG/DL (8.5-10.1); CHLORIDE 106 MMOL/L (99-107); CREATININE 1.08 MG/DL (0.60-1.10); GLUCOSE 120 MG/DL (70-104); MAGNESIUM 2.3 MG/DL (1.5-2.4); PHOSPHORUS 3.8 MG/DL (2.3-4.5); POTASSIUM 4.5 MMOL/L (3.5-5.1); SODIUM 140 MMOL/L (135-145); TOTAL CARBON DIOXIDE 24.5 MMOL/L (24-32); TOTAL PROTEIN 5.3 G/DL (6.4-8.2); eCRCL 70 ML/MIN; eGFR 68 ML/MIN
[2023-09-13] MEDS: aspirin 81mg tab.chew PO SCH (08:00)
[2023-09-13] MEDS ORDERED: calcium gluconate inj. 2 GM in normal saline 100ml IV soln 100 ML IV ONE (10:45)
[2023-09-13] MEDS: CALCIUM GLUC 1gm/50ml NACL,iso 50 ML IV ONE ×2 (11:04→12:01)
[2023-09-13] MEDS: PYRIDOXINE HCL (VITAMIN B6) 250 MG TABLET PO SCH (13:34)
[2023-09-13] MEDS: albuterol 2.5 MG/3 ML nebule NEB SCH (16:00)
[2023-09-13] MEDS: ipratropium 0.5 MG/2.5ML nebule IH SCH (16:00)
[2023-09-13] MEDS: diltiazem 30mg tablet PO SCH (16:28)
[2023-09-13] MEDS: guaiFENesin ER 600mg tablet PO SCH (20:41)
[2023-09-13] MEDS: atorvastatin 10mg tablet PO SCH (20:42)
[2023-09-14] VITALS (28 sets, daily range): BP systolic 99–140; BP diastolic 56–68; PULSE 60–82; RESP 12–20; O2SAT 79–96
[2023-09-14 02:25] LABS: BASOPHILS % (AUTO) 0.2 % (0-1); EOSINOPHILS % (AUTO) 0.2 % (0-6); HEMOGLOBIN 8.9 g/dl (14.0-17.9); LYMPHOCYTES # (AUTO) 0.9 X10'3 (1.1-4.8); MEAN CORPUSCULAR HEMOGLOBIN 32.1 PG (27.0-31.0); MEAN CORPUSCULAR HGB CONC 33.1 g/dL (33.0-36.5); MEAN CORPUSCULAR VOLUME 96.9 FL (78-98); MEAN PLATELET VOLUME 8.6 FL (7.4-10.4); MONOCYTES # (AUTO) 0.8 X10'3 (0-0.9); MONOCYTES % (AUTO) 9.2 % (2-12); NEUTROPHILS # (AUTO) 6.9 X10'3 (1.8-7.7); NEUTROPHILS % (AUTO) 79.4 % (42-75); PLATELET COUNT 107 X10'3 (140-440); RED BLOOD COUNT 2.78 X10'6 (4.70-6.10); RED CELL DISTRIBUTION WIDTH 13.6 % (11.5-14.5); WHITE BLOOD COUNT 8.6 X10'3 (4.5-11.0)
[2023-09-14 02:42] LABS: ALBUMIN 2.9 G/DL (3.4-5.0); ANION GAP 4 (8-16); BLOOD UREA NITROGEN 15 MG/DL (7-18); BUN/CREATININE RATIO 10.5 (10.0-20.0); CALCIUM 7.8 MG/DL (8.5-10.1); CHLORIDE 102 MMOL/L (99-107); CREATININE 1.43 MG/DL (0.60-1.10); GLUCOSE 142 MG/DL (70-104); MAGNESIUM 2.4 MG/DL (1.5-2.4); PHOSPHORUS 2.7 MG/DL (2.3-4.5); POTASSIUM 4.4 MMOL/L (3.5-5.1); SODIUM 136 MMOL/L (135-145); TOTAL CARBON DIOXIDE 30.3 MMOL/L (24-32); eCRCL 53 ML/MIN; eGFR 49 ML/MIN
[2023-09-14 07:06] LABS: ACT @ 1.70 U 251 SEC (193-297); ACT @ 2.84 U 375 SEC (260-420); BASELINE ACT 122 SEC (101-148); PATIENT WEIGHT 77.0k KG
[2023-09-14] MEDS: pantoprazole 40mg Tablet.DR PO SCH (07:30)
[2023-09-14] MEDS ORDERED: albumin (human) 25% 100 ML IV solution IV SCH (08:15)
[2023-09-14] MEDS: furosemide 20 MG/2 ML vial IV SCH (10:24)
[2023-09-14 11:34] LABS: ABG PO2 37.6 mmHg (75.0-100.0)
[2023-09-14] MEDS: HYDROcodone/acetaminophen 10/325mg tab PO PRN (12:14)
[2023-09-14 14:22] LABS: ACT @ 1.70 U 292 SEC (193-297); ACT @ 2.84 U 431 SEC (260-420); BASELINE ACT 147 SEC (101-148); PATIENT WEIGHT 77.0k KG
[2023-09-14 15:37] LABS: ACTIVATED CLOTTING TIME 143 SEC (101-148)
[2023-09-14] MEDS: magnesium hydroxide 30ml (MOM) UD suspension PO PRN (15:47)
[2023-09-14] MEDS: metoprolol tartrate 12.5mg (1/2 tablet) PO SCH (16:46)
[2023-09-15] VITALS (21 sets, daily range): BP systolic 104–133; BP diastolic 44–70; PULSE 61–151; RESP 10–21; TEMP 97.5–100.2; O2SAT 84–95
[2023-09-15 05:52] LABS: ALBUMIN 2.6 G/DL (3.4-5.0); ANION GAP 4 (8-16); BLOOD UREA NITROGEN 18 MG/DL (7-18); BUN/CREATININE RATIO 12.2 (10.0-20.0); CALCIUM 8.4 MG/DL (8.5-10.1); CHLORIDE 101 MMOL/L (99-107); CREATININE 1.47 MG/DL (0.60-1.10); GLUCOSE 123 MG/DL (70-104); MAGNESIUM 2.1 MG/DL (1.5-2.4); PHOSPHORUS 3.4 MG/DL (2.3-4.5); POTASSIUM 4.4 MMOL/L (3.5-5.1); SODIUM 137 MMOL/L (135-145); TOTAL CARBON DIOXIDE 32.2 MMOL/L (24-32); eCRCL 51 ML/MIN; eGFR 48 ML/MIN
[2023-09-15] MEDS: potassium Cl 20 mEq SR tablet PO PRN (05:59)
[2023-09-15 06:02] LABS: BASOPHILS % (AUTO) 0.2 % (0-1); EOSINOPHILS # (AUTO) 0.1 X10'3 (0-0.9); EOSINOPHILS % (AUTO) 0.7 % (0-6); HEMATOCRIT 26.2 % (42.0-52.0); HEMOGLOBIN 8.7 g/dl (14.0-17.9); LYMPHOCYTES % (AUTO) 9.6 % (21-51); MEAN CORPUSCULAR HEMOGLOBIN 32.4 PG (27.0-31.0); MEAN CORPUSCULAR HGB CONC 33.3 g/dL (33.0-36.5); MEAN CORPUSCULAR VOLUME 97.3 FL (78-98); MEAN PLATELET VOLUME 9.1 FL (7.4-10.4); MONOCYTES # (AUTO) 0.9 X10'3 (0-0.9); MONOCYTES % (AUTO) 8.6 % (2-12); NEUTROPHILS # (AUTO) 8.5 X10'3 (1.8-7.7); NEUTROPHILS % (AUTO) 80.9 % (42-75); PLATELET COUNT 133 X10'3 (140-440); RED BLOOD COUNT 2.69 X10'6 (4.70-6.10); RED CELL DISTRIBUTION WIDTH 13.5 % (11.5-14.5); WHITE BLOOD COUNT 10.5 X10'3 (4.5-11.0)
[2023-09-15] MEDS: JUVEN Smoothie Arginine/Glut./Ca2+Bmb (Juven 19.3pkt) 240ml cup PO SCH (07:30)
[2023-09-15] MEDS: iron polysaccharide complex 150mg capsule PO SCH (09:02)
[2023-09-15] MEDS: albumin (human) 25% 100 ML IV solution IV ONE (13:13)
[2023-09-15] MEDS: docusate sod 100mg capsule PO SCH ×2 (13:18→20:00)
[2023-09-15] MEDS: metoclopramide 5 mg/ml inj IV SCH (15:54)
[2023-09-15] MEDS: ipratropium/albuterol 3ml nebule NEB SCH (16:00)
[2023-09-15] MEDS ORDERED: amiodarone/D5 360MG/200ML BAG 200 ML IV PRN (17:25)
[2023-09-15] MEDS: amiodarone 150mg/dext, iso-os 100 ML IV ONE (17:31)
[2023-09-15] MEDS: amiodarone/D5 360MG/200ML BAG 200 ML IV PRN (17:57)
[2023-09-15] MEDS ORDERED: iron polysaccharide complex 150mg capsule PO SCH (20:00)
[2023-09-15] MEDS: diazepam 5mg tablet PO PRN (20:29)
[2023-09-15] MEDS: traMADol 50MG tablet PO PRN (20:30)
[2023-09-15] MEDS: furosemide 20 MG/2 ML vial IV ONE (21:44)
[2023-09-15] MEDS: metoprolol tartrate 25mg tablet PO SCH (21:45)
[2023-09-15] MEDS: amiodarone/D5 360MG/200ML BAG 200 ML IV SCH (21:46)
[2023-09-15] MEDS: levalbuterol 0.63mg/3ml nebule IH SCH (23:18)
[2023-09-15 23:54] LABS: ABG BASE EXCESS 1.8 mmol/L (-2.0-2.0); ABG HCO3 25.1 mmol/L (22.0-26.0); ABG OXYGEN SATURATION 90.7 % (94-97); ABG PCO2 (T) 35.1 mmHg (35.0-48.0); ABG PH (T) 7.474 (7.340-7.440); ABG PO2 (T) 56.3 mmHg (75.0-100.0); ALLEN'S TEST POSITIVE; FCOHb 0.3 % (0.0-3.9); FHHb 9.2 % (0.0-5.0); FLOW 8 L/min; FMetHb 0.3 % (0.0-1.5); FO2Hb 90.2 % (94-97); MODE HIGH FLOW; PATIENT TEMPERATURE 37.6; TOTAL HEMOGLOBIN 9.5 G/dl (14.0-17.9)
[2023-09-15 23:57] LABS: BASOPHILS # (AUTO) 0.1 X10'3 (0-0.2); BASOPHILS % (AUTO) 0.5 % (0-1); EOSINOPHILS # (AUTO) 0.1 X10'3 (0-0.9); HEMATOCRIT 25.9 % (42.0-52.0); HEMOGLOBIN 8.9 g/dl (14.0-17.9); LYMPHOCYTES # (AUTO) 0.8 X10'3 (1.1-4.8); LYMPHOCYTES % (AUTO) 8.4 % (21-51); MEAN CORPUSCULAR HEMOGLOBIN 32.9 PG (27.0-31.0); MEAN CORPUSCULAR HGB CONC 34.3 g/dL (33.0-36.5); MEAN PLATELET VOLUME 8.8 FL (7.4-10.4); MONOCYTES # (AUTO) 0.7 X10'3 (0-0.9); NEUTROPHILS % (AUTO) 83.1 % (42-75); PLATELET COUNT 128 X10'3 (140-440); RED BLOOD COUNT 2.69 X10'6 (4.70-6.10); RED CELL DISTRIBUTION WIDTH 13.4 % (11.5-14.5); WHITE BLOOD COUNT 9.6 X10'3 (4.5-11.0)
[2023-09-16] VITALS (28 sets, daily range): BP systolic 102–156; BP diastolic 46–76; PULSE 59–110; RESP 13–22; TEMP 96.8–98.5; O2SAT 83–99
[2023-09-16 00:05] LABS: ALBUMIN 2.7 G/DL (3.4-5.0); ANION GAP 9 (8-16); BLOOD UREA NITROGEN 22 MG/DL (7-18); BUN/CREATININE RATIO 18.2 (10.0-20.0); CALCIUM 8.5 MG/DL (8.5-10.1); CHLORIDE 101 MMOL/L (99-107); CREATININE 1.21 MG/DL (0.60-1.10); GLUCOSE 137 MG/DL (70-104); POTASSIUM 4.3 MMOL/L (3.5-5.1); SODIUM 137 MMOL/L (135-145); TOTAL CARBON DIOXIDE 27.4 MMOL/L (24-32); eCRCL 62 ML/MIN; eGFR 60 ML/MIN
[2023-09-16] MEDS: bisacodyl 10mg suppository rectal RC PRN (05:38)
[2023-09-16 07:16] LABS: BASOPHILS % (AUTO) 0.2 % (0-1); EOSINOPHILS # (AUTO) 0.1 X10'3 (0-0.9); EOSINOPHILS % (AUTO) 0.9 % (0-6); HEMATOCRIT 24.8 % (42.0-52.0); HEMOGLOBIN 8.4 g/dl (14.0-17.9); LYMPHOCYTES # (AUTO) 0.8 X10'3 (1.1-4.8); LYMPHOCYTES % (AUTO) 8.9 % (21-51); MEAN CORPUSCULAR HEMOGLOBIN 32.6 PG (27.0-31.0); MEAN CORPUSCULAR HGB CONC 33.7 g/dL (33.0-36.5); MEAN CORPUSCULAR VOLUME 96.7 FL (78-98); MEAN PLATELET VOLUME 8.7 FL (7.4-10.4); MONOCYTES # (AUTO) 0.9 X10'3 (0-0.9); MONOCYTES % (AUTO) 10.3 % (2-12); NEUTROPHILS # (AUTO) 6.9 X10'3 (1.8-7.7); NEUTROPHILS % (AUTO) 79.7 % (42-75); PLATELET COUNT 151 X10'3 (140-440); RED BLOOD COUNT 2.57 X10'6 (4.70-6.10); RED CELL DISTRIBUTION WIDTH 13.6 % (11.5-14.5); WHITE BLOOD COUNT 8.6 X10'3 (4.5-11.0)
[2023-09-16 07:31] LABS: ALBUMIN 2.6 G/DL (3.4-5.0); ANION GAP 3 (8-16); BLOOD UREA NITROGEN 23 MG/DL (7-18); BUN/CREATININE RATIO 17.6 (10.0-20.0); CHLORIDE 98 MMOL/L (99-107); CREATININE 1.31 MG/DL (0.60-1.10); GLUCOSE 125 MG/DL (70-104); PHOSPHORUS 3.2 MG/DL (2.3-4.5); SODIUM 130 MMOL/L (135-145); TOTAL CARBON DIOXIDE 29.5 MMOL/L (24-32); eCRCL 57 ML/MIN; eGFR 54 ML/MIN
[2023-09-16] MEDS: furosemide 20MG tablet PO SCH (07:55)
[2023-09-16] MEDS: metoprolol tartrate 12.5mg (1/2 tablet) PO SCH (07:56)
[2023-09-16] MEDS ORDERED: isosorbide mononitrate 30mg tab.SR.24H PO SCH (08:50)
[2023-09-16] MEDS: amiodarone 200mg tablet PO SCH (09:11)
[2023-09-16] MEDS: isosorbide mononitrate 30mg tab.SR.24H PO SCH (12:41)
[2023-09-16] MEDS: traMADol 50MG tablet PO PRN (19:40)
[2023-09-16] MEDS ORDERED: PYRIDOXINE HCL (VITAMIN B6) 250 MG TABLET PO SCH (20:00)
[2023-09-16] MEDS: folic acid 1mg tablet PO SCH (20:35)
[2023-09-17] VITALS (25 sets, daily range): BP systolic 96–154; BP diastolic 57–95; PULSE 61–148; RESP 15–23; TEMP 97–99.2; O2SAT 92–98
[2023-09-17 07:49] LABS: MAGNESIUM 2.8 MG/DL (1.5-2.4); PHOSPHORUS 3.4 MG/DL (2.3-4.5)
[2023-09-17 10:09] LABS: BASOPHILS % (AUTO) 0.6 % (0-1); EOSINOPHILS # (AUTO) 0.3 X10'3 (0-0.9); EOSINOPHILS % (AUTO) 4.3 % (0-6); HEMATOCRIT 26.2 % (42.0-52.0); HEMOGLOBIN 8.7 g/dl (14.0-17.9); LYMPHOCYTES # (AUTO) 1.2 X10'3 (1.1-4.8); LYMPHOCYTES % (AUTO) 17.3 % (21-51); MEAN CORPUSCULAR HEMOGLOBIN 32.3 PG (27.0-31.0); MEAN CORPUSCULAR HGB CONC 33.3 g/dL (33.0-36.5); MEAN CORPUSCULAR VOLUME 96.8 FL (78-98); MEAN PLATELET VOLUME 8.8 FL (7.4-10.4); MONOCYTES % (AUTO) 14.6 % (2-12); NEUTROPHILS # (AUTO) 4.3 X10'3 (1.8-7.7); NEUTROPHILS % (AUTO) 63.2 % (42-75); PLATELET COUNT 207 X10'3 (140-440); RED CELL DISTRIBUTION WIDTH 13.5 % (11.5-14.5); WHITE BLOOD COUNT 6.8 X10'3 (4.5-11.0)
[2023-09-17 10:13] LABS: ALBUMIN 2.4 G/DL (3.4-5.0); ANION GAP 11 (8-16); CALCIUM 8.2 MG/DL (8.5-10.1); CHLORIDE 105 MMOL/L (99-107); CREATININE 0.97 MG/DL (0.60-1.10); GLUCOSE 104 MG/DL (70-104); POTASSIUM 4.1 MMOL/L (3.5-5.1); SODIUM 140 MMOL/L (135-145); eCRCL 78 ML/MIN; eGFR 77 ML/MIN
[2023-09-17 10:22] LABS: BLOOD UREA NITROGEN 20 MG/DL (7-18); BUN/CREATININE RATIO 20.6 (10.0-20.0)
[2023-09-17] MEDS: amiodarone/D5 360MG/200ML BAG 200 ML IV SCH (11:31)
[2023-09-17] MEDS: acetaminophen 325mg tablet PO PRN (17:18)
[2023-09-17] MEDS: metoprolol tartrate 50mg tablet PO SCH (18:58)
[2023-09-17] MEDS: diltiazem CD 120mg capsule (once-daily) PO SCH (19:06)
[2023-09-17] MEDS: amiodarone 200mg tablet PO SCH (20:36)
[2023-09-17] MEDS: furosemide 20MG tablet PO SCH (20:37)
[2023-09-17] MEDS: apixaban 5mg tablet PO SCH (20:37)
[2023-09-18] VITALS (8 sets, daily range): BP systolic 106–112; BP diastolic 60–65; PULSE 55–76; RESP 12–18; TEMP 97.2–98.6; O2SAT 92–96
[2023-09-18] MEDS: thiamine 100mg tablet PO SCH (07:37)
[2023-09-18 08:22] LABS: MAGNESIUM 2.1 MG/DL (1.5-2.4); PHOSPHORUS 4.1 MG/DL (2.3-4.5)
[2023-09-18] MEDS ORDERED: APIX5TAB3 PO (10:46)
[2023-09-18] MEDS ORDERED: METO50TA16 PO (10:46)
[2023-09-18] MEDS ORDERED: AMI200T PO (10:46)
[2023-09-18] MEDS ORDERED: FLO0.4C PO (10:49)
[2023-09-18] MEDS ORDERED: TRAM50TA2 PO (10:55)
[2023-09-18 11:19] LABS: ALBUMIN 2.3 G/DL (3.4-5.0); ANION GAP 11 (8-16); BASOPHILS % (AUTO) 0.5 % (0-1); BLOOD UREA NITROGEN 21 MG/DL (7-18); BUN/CREATININE RATIO 19.8 (10.0-20.0); CALCIUM 8.3 MG/DL (8.5-10.1); CHLORIDE 101 MMOL/L (99-107); CREATININE 1.06 MG/DL (0.60-1.10); EOSINOPHILS # (AUTO) 0.2 X10'3 (0-0.9); EOSINOPHILS % (AUTO) 3.6 % (0-6); GLUCOSE 101 MG/DL (70-104); HEMATOCRIT 26.2 % (42.0-52.0); HEMOGLOBIN 8.7 g/dl (14.0-17.9); LYMPHOCYTES # (AUTO) 1.2 X10'3 (1.1-4.8); LYMPHOCYTES % (AUTO) 19.4 % (21-51); MEAN CORPUSCULAR HEMOGLOBIN 32.1 PG (27.0-31.0); MEAN CORPUSCULAR HGB CONC 33.1 g/dL (33.0-36.5); MONOCYTES % (AUTO) 15.5 % (2-12); NEUTROPHILS # (AUTO) 3.9 X10'3 (1.8-7.7); PLATELET COUNT 280 X10'3 (140-440); POTASSIUM 4.3 MMOL/L (3.5-5.1); RED CELL DISTRIBUTION WIDTH 13.6 % (11.5-14.5); SODIUM 137 MMOL/L (135-145); TOTAL CARBON DIOXIDE 24.8 MMOL/L (24-32); WHITE BLOOD COUNT 6.4 X10'3 (4.5-11.0); eCRCL 71 ML/MIN; eGFR 69 ML/MIN
[2023-09-18] MEDS ORDERED: ondansetron 4mg rapidly disintigrating tab PO PRN (11:30)
== END 2023-09-18 14:10 | disposition home or self-care (01) | DRG 233 ==
LOC: SSTAY O 08:54 → CICU 2S 17:46 → PCU 3S 09-15 01:32
PROVIDERS: ADMIT Internal Medicine; ATTEND Internal Medicine Cardiovascular Disease
PROC: 4A023N7 Measurement of Cardiac Sampling and Pressure, Left Heart, Percutaneous Approach (ICD-10-PCS; principal; 2023-09-10)
PROC: B2111ZZ Fluoroscopy of Multiple Coronary Arteries using Low Osmolar Contrast (ICD-10-PCS; 2023-09-10)
PROC: B2151ZZ Fluoroscopy of Left Heart using Low Osmolar Contrast (ICD-10-PCS; 2023-09-10)
PROC: 02100AW Bypass Coronary Artery, One Artery from Aorta with Autologous Arterial Tissue, Open Approach (ICD-10-PCS; 2023-09-12)
PROC: 02100Z9 Bypass Coronary Artery, One Artery from Left Internal Mammary, Open Approach (ICD-10-PCS; 2023-09-12)
PROC: 02110Z8 Bypass Coronary Artery, Two Arteries from Right Internal Mammary, Open Approach (ICD-10-PCS; 2023-09-12)
PROC: 03BC4ZZ Excision of Left Radial Artery, Percutaneous Endoscopic Approach (ICD-10-PCS; 2023-09-12)
PROC: B24BZZ4 Ultrasonography of Heart with Aorta, Transesophageal (ICD-10-PCS; 2023-09-12)
PROC: 5A0935A Assistance with Respiratory Ventilation, Less than 24 Consecutive Hours, High Flow/Velocity Cannula (ICD-10-PCS; 2023-09-16)
DX: I25.118 Atherosclerotic heart disease of native coronary artery with other forms of angina pectoris (principal); N17.0 Acute kidney failure with tubular necrosis; J98.11 Atelectasis; J90 Pleural effusion, not elsewhere classified; I31.9 Disease of pericardium, unspecified; D64.9 Anemia, unspecified; R00.1 Bradycardia, unspecified; E78.5 Hyperlipidemia, unspecified; I10 Essential (primary) hypertension; N40.0 Benign prostatic hyperplasia without lower urinary tract symptoms; I48.91 Unspecified atrial fibrillation; F41.9 Anxiety disorder, unspecified; Z96.1 Presence of intraocular lens; I08.0 Rheumatic disorders of both mitral and aortic valves; I25.2 Old myocardial infarction; Z95.5 Presence of coronary angioplasty implant and graft; Z79.899 Other long term (current) drug therapy; Z79.82 Long term (current) use of aspirin; Z79.02 Long term (current) use of antithrombotics/antiplatelets; Z71.6 Tobacco abuse counseling; Z72.0 Tobacco use; Z98.42 Cataract extraction status, left eye; Z98.41 Cataract extraction status, right eye
CPT/HCPCS: 0232T; 93306; 93312; 93325; 93458; 36415; 36600; 71045; 76937; 80048; 80053; 80061; 81003; 82330; 82435; 82803; 82947; 82948; 83036; 83735; 84100; 84132; 84295; 85018; 85025; 85347; 85384; 85610; 85730; 86885; 86900; 86901; 86920; 87081; 93005; 93880; 93970; 94002; 94010; 94640; 94664; 94668; 94760; 97116; 97161; 97530; 99152; 99153; A4333; A4615; A4618; A6213; A6258; A6449; A7000; A7048; C1725; C1751; C1894; C9290; G0378; J0131; J0171; J0282; J0360; J0610; J0690; J1170; J1644; J1815; J1940; J2250; J2405; J2704; J2720; J2765; J3010; J3411; J3475; J3480; J3490; J7030; J7040; J7050; J7070; J7120; J7614; P9016; P9045; P9047; Q0163; Q9967

== ENCOUNTER 2024-05-19 07:13 | Emergency (ER) | payer MEDICARE ==
[~2024-05-19] VITALS: Ht 180.3 cm; Wt 75.9 kg
[~2024-05-19 07:13] MED LIST changes: -ALFU10TA10 PO; +ALFU10TA47 PO; +AMI200T PO; +APIX5TAB3 PO; -ASCO-157 PO; -ASPI-1475 PO; +ASPI-611 PO; -CLOP75TA34 PO; +DIAZ5TAB4 PO; -LOSA50TA64 PO; -MAGN250C PEG; -METO-539 PO; +METO50TA16 PO; -NITR0.4T48 SL; -POTA99CA PO; -ROSU20TA73 PO; +ROSU40TA89 PO; +TRAM50TA2 PO
[2024-05-19 07:34] LABS: BASOPHILS % (AUTO) 0.5 % (0-1); EOSINOPHILS # (AUTO) 0.1 X10'3 (0-0.9); EOSINOPHILS % (AUTO) 1.5 % (0-6); HEMATOCRIT 46.9 % (42.0-52.0); LYMPHOCYTES # (AUTO) 1.6 X10'3 (1.1-4.8); LYMPHOCYTES % (AUTO) 37.5 % (21-51); MEAN CORPUSCULAR HEMOGLOBIN 33.3 PG (27.0-31.0); MEAN CORPUSCULAR HGB CONC 34.2 g/dL (33.0-36.5); MEAN CORPUSCULAR VOLUME 97.4 FL (78-98); MEAN PLATELET VOLUME 8.2 FL (7.4-10.4); MONOCYTES # (AUTO) 0.5 X10'3 (0-0.9); MONOCYTES % (AUTO) 12.2 % (2-12); NEUTROPHILS % (AUTO) 48.3 % (42-75); PLATELET COUNT 243 X10'3 (140-440); RED BLOOD COUNT 4.82 X10'6 (4.70-6.10); RED CELL DISTRIBUTION WIDTH 13.4 % (11.5-14.5); WHITE BLOOD COUNT 4.1 X10'3 (4.5-11.0)
[2024-05-19] MEDS ORDERED: METO-395 PO (07:42)
[2024-05-19 07:56] LABS: ALANINE AMINOTRANSFERASE 38 U/L (12-78); ALBUMIN 3.8 G/DL (3.4-5.0); ALKALINE PHOSPHATASE 77 IU/L (46-116); ANION GAP 6 (8-16); ASPARTATE AMINO TRANSFERASE 29 U/L (10-37); BILIRUBIN,TOTAL 0.5 MG/DL (0.1-1.0); BLOOD UREA NITROGEN 18 MG/DL (7-18); BUN/CREATININE RATIO 14.6 (10.0-20.0); CALCIUM 8.3 MG/DL (8.5-10.1); CHLORIDE 107 MMOL/L (99-107); CREATININE 1.23 MG/DL (0.60-1.10); GLUCOSE 107 MG/DL (70-104); POTASSIUM 4.2 MMOL/L (3.5-5.1); SODIUM 143 MMOL/L (135-145); TOTAL PROTEIN 7.5 G/DL (6.4-8.2); eCRCL 61 ML/MIN; eGFR 59 ML/MIN
[2024-05-19 08:04] LABS: PRO BRAIN NATRIURETIC PEPTIDE 203 PG/ML (0-125)
[2024-05-19 08:42] VITALS: TEMP 98.4
[2024-05-19 09:21] VITALS: BP 150/97; PULSE 40; RESP 18; O2SAT 96
== END 2024-05-19 09:28 | disposition home or self-care (01) ==
LOC: ER 07:13
DX: R07.9 Chest pain, unspecified (principal); E78.00 Pure hypercholesterolemia, unspecified; I10 Essential (primary) hypertension; I25.10 Atherosclerotic heart disease of native coronary artery without angina pectoris; Z95.1 Presence of aortocoronary bypass graft; Z98.890 Other specified postprocedural states
CPT/HCPCS: 36415; 71045; 80053; 83880; 84484; 85025; 93005; 99285